=== PATIENT | male | born 2000 | race Caucasian/White ===

== ENCOUNTER 2019-11-24 02:35 | Emergency (ER) | payer BC, MEDICAID ==
[~2019-11-24] VITALS: Ht 182.9 cm; Wt 124.7 kg
--- NOTE | 2019-11-24 02:40 | NUR ---
Patient to ER bed 3 to gown for evaluation. Side rails up.
[2019-11-24 02:45] VITALS: BP_SYST 139
--- NOTE | 2019-11-24 02:50 | NUR ---
ER Dr. LAU at bedside examining patient.
--- NOTE | 2019-11-24 02:52 | NUR ---
PT A&OX4 BECAME AGITATED AND REFUSING ALL CARE. PT PULLED DELIVERY CONSULTANT OFF CHEST AND SPO2 DEVICE FROM FINGER. PT UNABLE TO BE REDIRECTED. PT POSTURING TOWARDS STAFF AND IS REFUSING ALL TREATMENT AT THIS TIME. STAFF STATES WE ARE TRYING TO HELP YOU. PT RESPONDS "I DONT WANT YOUR HELP BITCH" AND LEAVES. PT ABLE TO WALK WITH STEADY GAIT AND AND REQUESTING FAMILY TO TAKE HIM HOME. DR LAU AWARE OF SITUATION.
--- NOTE | 2019-11-24 02:58 | NUR ---
PT ELOPED WITHOUT BEING SEEN
[2019-11-24] MEDS ORDERED: AMMONIA INHALANT 0.3mL AMPUL INH ONE (12:01)
== END 2019-11-24 02:50 | disposition left against medical advice (07) ==
LOC: SED 02:35
DX: T65.91XA Toxic effect of unspecified substance, accidental (unintentional), initial encounter (principal); Z53.21 Procedure and treatment not carried out due to patient leaving prior to being seen by health care provider; X58.XXXA Exposure to other specified factors, initial encounter

== ENCOUNTER 2019-11-24 11:37 | Emergency (ER) | payer BC, MEDICAID ==
[~2019-11-24] VITALS: Ht 180.3 cm; Wt 86.2 kg
--- NOTE | 2019-11-24 11:40 | NUR ---
Patient to ER bed 1 to gown for evaluation. Side rails up.
--- NOTE | 2019-11-24 11:40 | NUR ---
Pt brought to ER family decided he was acting strange. Pt was wheeled in from front responsive to painful stimuli, not responsive to verbal commands, VSS, O2 sat WNL.
--- NOTE | 2019-11-24 11:45 | NUR ---
ER at bedside examining patient.
--- NOTE | 2019-11-24 11:50 | NUR ---
# 18 gauge angiocath placed to RAC. Use of asceptic technique. Opsite placed over site. Blood return noted. Blood for lab drawn from site. Flushed with 10 cc of normal saline. No evidence of infiltration noted. Patient tolerated well.
[2019-11-24 11:59] VITALS: BP_SYST 166
[2019-11-24] MEDS ORDERED: NACL 0.9% 2,000 ML IV ONE (12:00)
--- NOTE | 2019-11-24 12:03 | NUR ---
1L NS infusing as ordered by
--- NOTE | 2019-11-24 12:09 | NUR ---
Inserted straight cath per MD order for urine sample, pt tolerated well.
[2019-11-24 12:26] LABS: BASOPHILS % (AUTO) 0.4 % (0.0-2.0); EOSINOPHILS # (AUTO) 0.1 K/uL (0.0-0.4); EOSINOPHILS % (AUTO) 1.9 % (0.0-4.0); HEMATOCRIT 47.2 % (36-54); LYMPHOCYTES % (AUTO) 27.3 % (20.5-51.5); MEAN CORPUSCULAR HEMOGLOBIN 30 pg (27-31); MEAN CORPUSCULAR HGB CONC 34 % (32-36); MEAN CORPUSCULAR VOLUME 88 fL (79.0-98.0); MONOCYTES # (AUTO) 0.6 K/uL (0.0-1.0); MONOCYTES % (AUTO) 7.5 % (1.7-9.3); NEUTROPHILS # (AUTO) 4.7 K/uL (1.8-7.7); NEUTROPHILS % (AUTO) 62.9 % (40.0-70.0); PLATELET COUNT (AUTO) 193 K/uL (130-430); RED BLOOD CELL COUNT(AUTO) 5.34 MIL/uL (4.2-6.2); RED CELL DISTRIBUTION WIDTH 13.3 % (9.0-15.0); WHITE BLOOD COUNT (AUTO) 7.4 K/uL (4.8-10.8)
[2019-11-24 12:27] LABS: SODIUM SERUM 138 mmol/L (136-145)
[2019-11-24 12:28] LABS: ANION GAP 6 (5-15); CHLORIDE 104 mmol/L (98-107); CREATININE 1.08 mg/dL (0.55-1.30); GFR AFRICAN AMERICAN 111 mL/min (>90); GLUCOSE 103 mg/dL (70-99); POTASSIUM 3.6 mmol/L (3.5-5.1); UREA NITROGEN, BLOOD 12 mg/dL (8-21)
[2019-11-24 12:38] LABS: ALBUMIN 4.2 g/dL (3.4-4.8); ALCOHOL, BLOOD < 3 mg/dL (<10); TOTAL BILIRUBIN 0.8 mg/dL (0.0-1.0)
--- NOTE | 2019-11-24 12:45 | NUR ---
Pt reports attempted overdose last night, history of attempts. Per family pt woke up this morning and asked why he didn't . Safety precautions initiated. Security notified to wand patient.
[2019-11-24 12:49] LABS: BARBITURATE, URINE NEGATIVE (NEG <=200); BENZODIAZEPINE, URINE NEGATIVE (NEG <=150); METHAMPHETAMINES SCREEN,URINE NEGATIVE (NEG <=500); URINE AMPHETAMINE NEGATIVE (NEG <=500); URINE METHADONE NEGATIVE (NEG <=200)
[2019-11-24 12:50] LABS: CANNABINOID, URINE POSITIVE (NEG <=50); COCAINE, URINE POSITIVE (NEG <=150); OPIATE, URINE NEGATIVE (NEG <=100); PHENCYCLIDINE SCREEN,URINE NEGATIVE (NEG <=25); UR TRICYCLIC ANTIDEPRESSANTS NEGATIVE (NEG <=300); URINE OXYCODONE SCREEN NEGATIVE (NEG <=100); URINE PROPOXYPHENE SCREEN NEGATIVE (NEG <=300)
[2019-11-24 12:55] LABS: ALANINE AMINOTRANSFERASE 28 U/L (12-78); ASPARTATE AMINOTRANSFERASE 12 U/L (10-37)
[2019-11-24 13:04] LABS: ACETAMINOPHEN < 1 ug/mL (1-30)
--- NOTE | 2019-11-24 13:30 | NUR ---
Patient given written and verbal discharge instructions and verbalizes understanding. ER MD discussed with patient the results and treatment provided. Patient in stable condition. ID arm band removed. IV catheter removed intact and dressing applied, no active bleeding. Patient educated on pain management and to follow up with PMD. Pain Scale 0. Opportunity for questions provided and answered. Medication side effect fact sheet provided.
[2019-11-24 13:33] VITALS: BP_SYST 166
== END 2019-11-24 13:33 | disposition home or self-care (01) ==
LOC: SED 11:37
DX: R45.851 Suicidal ideations (principal)
CPT/HCPCS: 36415; 80053; 80307; 85025; 93005; 99284; G0480; G0481; G0482; J7030; 96360